=== PATIENT | female | born 1965 | race Hispanic/Latino ===

== ENCOUNTER 2018-09-04 10:33 | Inpatient (IN) | payer MEDICAID, OTHER ==
[~2018-09-04] VITALS: Ht 165.1 cm; Wt 94.3 kg
[2018-09-04 11:24] LABS: APPEARANCE,URINE TURBID (CLEAR); BILIRUBIN,URINE LARGE (NEGATIVE); COLOR,URINE BROWN (YELLOW); GLUCOSE, URINE (UA) 250 mg/dL (NEGATIVE); KETONES,URINE 15 mg/dL (NEGATIVE); LEUKOCYTE ESTERASE ,URINE MODERATE (NEGATIVE); NITRATE,URINE POSITIVE (NEGATIVE); OCCULT BLOOD,URINE TRACE-INTACT (NEGATIVE); PH,URINE 6.5 (5.0-8.0); PROTEIN,URINE >=300 (NEGATIVE); UROBILINOGEN,URINE >=8.0 mg/dL (0.2-1.0)
[2018-09-04 11:25] LABS: CREATININE 1.1 mg/dL (0.5-1.5); POTASSIUM 4.2 mmol/L (3.5-5.1)
[2018-09-04 11:30] LABS: ALBUMIN 2.8 g/dL (3.5-5.0); BILIRUBIN,TOTAL 4.4 mg/dL (0.2-1.0); TOTAL PROTEIN, SERUM 8.7 g/dL (6.0-8.3)
[2018-09-04 11:31] LABS: BASOPHILS % (AUTO) 0.7 % (0.0-5.0); EOSINOPHILS % (AUTO) 2.5 % (0.0-8.0); HEMATOCRIT 37.4 % (36-48); LYMPHOCYTES % (AUTO) 14.2 % (21.0-51.0); MEAN CORPUSCULAR HEMOGLOBIN 30.7 pg (27.0-33.0); MEAN CORPUSCULAR HGB CONC 33.5 g/dL (32.0-36.0); MEAN CORPUSCULAR VOLUME 91.6 fL (79-99); MONOCYTES % (AUTO) 8.1 % (3.0-13.0); NEUTROPHILS % (AUTO) 74.5 % (40.0-77.0); NUCLEATED RED BLOOD CELLS 0.1 % (0.0-0.19); PLATELET COUNT (AUTO) 389 K/uL (130-400); RED BLOOD CELL COUNT(AUTO) 4.09 MIL/uL (4.00-5.50); RED CELL DISTRIBUTION WIDTH 14.9 % (11.0-15.5); WHITE BLOOD COUNT (AUTO) 7.9 K/uL (4.8-10.8)
[2018-09-04 11:35] LABS: BACTERIA,URINE Many /HPF (None Seen); SQUAMOUS EPITHELIAL CELL,UR Few /HPF (0-2); YEAST,URINE BUDDING Moderate /HPF (None Seen)
[2018-09-04] MEDS ORDERED: ACETAMINOPHEN 325 MG TAB PO PRN ×2 (16:15)
[2018-09-04] MEDS ORDERED: MORPHINE SULFATE 2 MG/ML 1ML SYG IV PRN (16:15)
[2018-09-04] MEDS ORDERED: HYDRALAZINE HCL 20 MG/ML VIAL IV PRN (16:15)
[2018-09-04] MEDS ORDERED: ONDANSETRON HCL 4 MG/2 ML VIAL IV PRN (16:15)
[2018-09-04] MEDS ORDERED: SODIUM CHLORIDE 0.9% 1000ML 1,000 ML IV ONE (17:16)
[2018-09-04] MEDS ORDERED: ZOSYN 3.375GM+NS 50ML 50 ML IV ONE (17:16)
[2018-09-04] MEDS ORDERED: ENOXAPARIN SODIUM 30 MG/0.3 ML SQ ONE (17:16)
[2018-09-04] MEDS ORDERED: SODIUM CHLORIDE 0.9% 50 ML IV ONE (17:17)
[2018-09-04 17:45] LABS: HEMOGLOBIN A1C 9.4 % (4.0-6.0)
[2018-09-04 17:52] LABS: ALBUMIN 2.3 g/dL (3.5-5.0); BILIRUBIN,DIRECT 4.8 mg/dL (0.0-0.3); BILIRUBIN,TOTAL 5.2 mg/dL (0.2-1.0); TOTAL PROTEIN, SERUM 6.9 g/dL (6.0-8.3)
[2018-09-04 18:51] VITALS: BP 149/73
[2018-09-04 20:00] VITALS: BP 125/90
--- NOTE | 2018-09-04 20:00 | NUR ---
ADMISSION. PT ADMITTED INTO ROOM 413. PT IN BED, WITH FAMILY MEMBER AT BEDSIDE. AWAKE, ALERT AND RESPONSIVE. NO C/O PAIN OR DISCOMFORT AT THIS TIME. PT AND FAMILY MEMBER ORIENTED TO ROOM. CALL SMITH WITHIN REACH, BED IN LOWEST POSITION. Addendum: 09/04/18 at 2140 by HEATHER MILAN RN Amended: Links added.
[2018-09-04] MEDS: ZOSYN 3.375GM+NS 50ML 50 ML IV SCH (21:00)
[2018-09-04] MEDS: SODIUM CHLORIDE 0.9% 1000ML 1,000 ML IV SCH (21:26)
[2018-09-04] MEDS: INSULIN HUMULIN R 100 UNIT/ML 3ML SQ SCH (21:26)
[2018-09-04] MEDS: FAMOTIDINE/PF 20 MG/2 ML VIAL IV SCH (21:26)
[2018-09-04] MEDS: CEFTRIAXONE SODIUM 2 GM VIAL IVP SCH (22:30)
[2018-09-04] MEDS ORDERED: CEFAZOLIN SODIUM 1 GM VIAL ONE (23:06)
[2018-09-04] MEDS: AZITHROMYCIN 500MG+NS 250ML 250 ML IV SCH (23:40)
[2018-09-04 23:56] VITALS: BP 137/76
[2018-09-05] MEDS ORDERED: SODIUM CHLORIDE 3% FOR INHALATION 4 ML/AMP VIAL.NEB IH ONE ×2 (00:32→07:24)
[2018-09-05] MEDS: SODIUM CHLORIDE 0.9% 1000ML 1,000 ML IV SCH ×3 (02:09→20:52)
[2018-09-05] MEDS: ZOSYN 3.375GM+NS 50ML 50 ML IV SCH ×3 (03:28→20:51)
[2018-09-05 04:00] VITALS: BP 122/78
[2018-09-05 04:42] LABS: HEMATOCRIT 31.5 % (36-48); MEAN CORPUSCULAR HEMOGLOBIN 30.9 pg (27.0-33.0); MEAN CORPUSCULAR HGB CONC 34.2 g/dL (32.0-36.0); MEAN CORPUSCULAR VOLUME 90.4 fL (79-99); PLATELET COUNT (AUTO) 282 K/uL (130-400); RED BLOOD CELL COUNT(AUTO) 3.49 MIL/uL (4.00-5.50); RED CELL DISTRIBUTION WIDTH 14.6 % (11.0-15.5); WHITE BLOOD COUNT (AUTO) 6.6 K/uL (4.8-10.8)
[2018-09-05 05:06] LABS: ALBUMIN 2.1 g/dL (3.5-5.0); BILIRUBIN,TOTAL 5.3 mg/dL (0.2-1.0); CREATININE 1.3 mg/dL (0.5-1.5); MAGNESIUM 1.3 mg/dL (1.80-2.40); PHOSPHORUS 3.1 mg/dL (2.5-4.9); POTASSIUM 4.4 mmol/L (3.5-5.1); THYROID STIMULATING HORMONE 1.31 uIU/mL (0.36-3.74); TOTAL PROTEIN, SERUM 6.8 g/dL (6.0-8.3)
[2018-09-05] MEDS: INSULIN HUMULIN R 100 UNIT/ML 3ML SQ SCH ×5 (06:16→20:52)
[2018-09-05 07:40] VITALS: BP 109/64
--- NOTE | 2018-09-05 08:30 | NUR ---
OBGYN CONSULT CALLED DR. SHAYY ALBRIGHT, INFORMED HIM OF THE CONSULT. DR. ALBRIGHT STATED THAT HE WAS NOT WIRING INSPECTOR TODAY BUT HE AGREED TO SEE THE PATIENT.
[2018-09-05] MEDS: ENOXAPARIN SODIUM 30 MG/0.3 ML SQ SCH (09:00)
--- NOTE | 2018-09-05 09:00 | NUR ---
GI CONSULT DR. BRANNON CALLED BACK. REQUESTED TO CALL HIS OFFICE WITH RESULT OF CT AND INITIATE A CLEAR LIQUID DIET FOR PT. NEW ORDERS RECEIVED AND CARRIED OUT.
[2018-09-05] MEDS ORDERED: DIATR MEGLU/DIATRIZOATE SODIUM 30 ML BOTTLE ONE (09:10)
[2018-09-05] MEDS ORDERED: IOHEXOL-350 75 ML VIAL IV ONE (10:17)
[2018-09-05] MEDS: FAMOTIDINE/PF 20 MG/2 ML VIAL IV SCH ×2 (10:19→20:51)
[2018-09-05] MEDS: CEFTRIAXONE SODIUM 2 GM VIAL IVP SCH (10:19)
[2018-09-05] MEDS: CEFTRIAXONE SODIUM 1 GM IVP SCH ×2 (11:00→23:13)
[2018-09-05 11:50] VITALS: BP 106/67
--- NOTE | 2018-09-05 13:00 | NUR ---
DR. BRANNON CALLED DR. BRANNON'S OFFICE TO READ BACK RESULTS OF CT. PER OFFICE STAFF, DR. BRANNON WAS IN A PT ROOM AND REQUESTED TO FAX CT RESULTS. CT ABD/PELVIS FAXED WITH [facility] [place] FAX COVER. WAITING FOR DR. BRANNON TO CALL BACK. WILL CONTINUE TO MONITOR CLOSELY.
[2018-09-05 16:20] VITALS: BP 111/68
--- NOTE | 2018-09-05 16:43 | NUR ---
NUTRITION INTERVENTION: NUTRITION NOTIFICATION FOR WT LOSS WITHOUT TRYING. HOWEVER, Pt REPORTS NO WEIGHT LOSS TO DIETITIAN. Pt STATES SHE DOES NOT KNOW HOW TO READ ALTHOUGH NO HANDOUTS WERE BEING PROVIDED TO HER. RD REVIEWED DIABETIC DIET WITH IN DISCUSSION FORM. Pt HAS BEEN ADVISED TO REMOVE RICE, POTATO AND TORTILLAS FROM HER DIET. Pt LAUGHS AND VERBALIZE UNDERSTANDING. RD HAS EMPHASIZED THE IMPORTANCE OF HEALTHY EATING. RECOMMENDATIONS: WHEN MEDICALLY FEASIBLE, ADVANCE DIET THERAPY TO CCD 75GM DIET. RD TO CONTINUE MONITORING Pt's NUTRITIONAL STATUS FOR CONTINUED INTERVENTION. Addendum: 09/05/18 at [address] RD Amended: Links added.
[2018-09-05] MEDS ORDERED: MAGNESIUM 2GM PREMIX 50ML 50 ML IV PRN (19:00)
--- NOTE | 2018-09-05 20:04 | NUR ---
DCP CM met wit pt discussed dc plans. Pt is independent prior to admission, lives at home with daughter, family live close by. Denies any equipments/services. Pt feels safe to go back home, daughter able to assist with transportation and needs as necessary. Pt is a self pay, states currently does not have a pcp, given community resources lists. [facility] assisting pt. DC plan to home once stable. CM to cont to follow up. Addendum: 09/05/18 at 2006 by HEYDI DEGROOT LVN CM Amended: Links added.
[2018-09-05 20:10] VITALS: BP 118/73
[2018-09-05] MEDS: AZITHROMYCIN 500MG+NS 250ML 250 ML IV SCH (23:13)
[2018-09-05 23:46] VITALS: BP 118/73
[2018-09-06 04:24] LABS: HEMATOCRIT 32.7 % (36-48); MEAN CORPUSCULAR HEMOGLOBIN 30.5 pg (27.0-33.0); MEAN CORPUSCULAR HGB CONC 33.4 g/dL (32.0-36.0); MEAN CORPUSCULAR VOLUME 91.3 fL (79-99); NUCLEATED RED BLOOD CELLS 0.1 % (0.0-0.19); PLATELET COUNT (AUTO) 252 K/uL (130-400); RED BLOOD CELL COUNT(AUTO) 3.58 MIL/uL (4.00-5.50); RED CELL DISTRIBUTION WIDTH 14.9 % (11.0-15.5); WHITE BLOOD COUNT (AUTO) 6.1 K/uL (4.8-10.8)
[2018-09-06 04:46] VITALS: BP 116/76
[2018-09-06] MEDS: ZOSYN 3.375GM+NS 50ML 50 ML IV SCH (05:07)
[2018-09-06 05:17] LABS: ALBUMIN 1.9 g/dL (3.5-5.0); BILIRUBIN,DIRECT 5.1 mg/dL (0.0-0.3); BILIRUBIN,TOTAL 5.7 mg/dL (0.2-1.0); CREATININE 1.3 mg/dL (0.5-1.5); POTASSIUM 3.7 mmol/L (3.5-5.1); TOTAL PROTEIN, SERUM 6.3 g/dL (6.0-8.3)
[2018-09-06] MEDS: INSULIN HUMULIN R 100 UNIT/ML 3ML SQ SCH ×4 (06:01→20:56)
[2018-09-06 08:00] VITALS: BP 110/70
[2018-09-06 08:26] LABS: HEPATITIS A ANTIBODY IGM Negative (Negative); HEPATITIS B CORE IGM Negative (Negative); HEPATITIS Bs ANTIGEN SCREEN P Negative (Negative)
[2018-09-06] MEDS: ENOXAPARIN SODIUM 30 MG/0.3 ML SQ SCH (08:45)
[2018-09-06] MEDS: FAMOTIDINE/PF 20 MG/2 ML VIAL IV SCH ×2 (08:45→20:49)
[2018-09-06] MEDS: SODIUM CHLORIDE 0.9% 1000ML 1,000 ML IV SCH ×2 (08:46→22:29)
[2018-09-06 11:00] VITALS: BP 110/69
[2018-09-06] MEDS: CEFTRIAXONE SODIUM 1 GM IVP SCH ×2 (13:34→22:29)
[2018-09-06 16:00] VITALS: BP 119/71
[2018-09-06 18:07] LABS: ALBUMIN 2.2 g/dL (3.5-5.0); BILIRUBIN,TOTAL 6.4 mg/dL (0.2-1.0); CREATININE 1.5 mg/dL (0.5-1.5); POTASSIUM 3.8 mmol/L (3.5-5.1); TOTAL PROTEIN, SERUM 7.5 g/dL (6.0-8.3)
[2018-09-06 19:30] VITALS: BP 115/73
--- NOTE | 2018-09-06 22:05 | NUR ---
CONSENT PLAN FOR DIAGNOSTIC PARACENTESIS, [id number] OBTAIN FROM DAUGHTER, PATIENT VERBALIZES UNDERSTANDING,IVF INFUSING WELL, TEACH PATIENT PLAN OF CARE AND EXPECTED OUTCOME, VERBALIZE UNDERSTANDING VIA TEACH BACK
[2018-09-06 23:20] VITALS: BP 126/84
[2018-09-07] VITALS (27 sets, daily range): BP systolic 10–172; BP diastolic 46–102
[2018-09-07 04:50] LABS: HEMATOCRIT 32.9 % (36-48); MEAN CORPUSCULAR HEMOGLOBIN 30.7 pg (27.0-33.0); MEAN CORPUSCULAR HGB CONC 33.6 g/dL (32.0-36.0); MEAN CORPUSCULAR VOLUME 91.5 fL (79-99); NUCLEATED RED BLOOD CELLS 0.1 % (0.0-0.19); PLATELET COUNT (AUTO) 296 K/uL (130-400); RED BLOOD CELL COUNT(AUTO) 3.59 MIL/uL (4.00-5.50); WHITE BLOOD COUNT (AUTO) 6.5 K/uL (4.8-10.8)
[2018-09-07 05:06] LABS: ALBUMIN 1.9 g/dL (3.5-5.0); BILIRUBIN,DIRECT 5.8 mg/dL (0.0-0.3); BILIRUBIN,TOTAL 6.4 mg/dL (0.2-1.0); CREATININE 1.3 mg/dL (0.5-1.5); POTASSIUM 3.4 mmol/L (3.5-5.1); TOTAL PROTEIN, SERUM 6.6 g/dL (6.0-8.3)
[2018-09-07] MEDS ORDERED: POTASSIUM CHLORIDE 20MEQ/100ML 100 ML IV PRN (05:45)
[2018-09-07] MEDS ORDERED: POTASSIUM CHLORIDE 10% ELIXIR 20 MEQ/15 ML UDCUP PO PRN (05:45)
[2018-09-07] MEDS ORDERED: LIDOCAINE HCL-MPF 1% 2ML VIAL IVP PRN (05:45)
[2018-09-07] MEDS ORDERED: POTASSIUM CHLORIDE 10% ELIXIR 20 MEQ/15 ML UDCUP ONE (05:47)
[2018-09-07] MEDS: INSULIN HUMULIN R 100 UNIT/ML 3ML SQ SCH ×5 (05:56→20:10)
[2018-09-07] MEDS: FAMOTIDINE/PF 20 MG/2 ML VIAL IV SCH ×2 (08:31→20:10)
[2018-09-07] MEDS: ENOXAPARIN SODIUM 30 MG/0.3 ML SQ SCH (08:31)
[2018-09-07 10:44] LABS: INR 1.09 (0.85-1.15); PARTIAL THROMBOPLASTIN TIME 27.5 SEC (26.3-35.5); PROTHROMBIN TIME 11.4 SEC (9.6-11.6)
[2018-09-07] MEDS: CEFTRIAXONE SODIUM 1 GM IVP SCH ×2 (11:30→22:32)
[2018-09-07] MEDS ORDERED: LIDOCAINE HCL 1% 20 ML VIAL ONE (14:20)
--- NOTE | 2018-09-07 14:40 | NUR ---
U/S GD PARACENTESIS PROCEDURE PERFORMED BY DR Valarie LEDESMA. PUNCTURE SITE LLQ AND PATIENT TOLERATED PROCEDURE WELL. SMALL AMOUNT OF FLUID PRESENT AND UNABLE TO REMOVE FLUID FOR ANALYSIS. END OF PROCEDURE AT 1425. CATHETER REMOVED AND DRESSING APPLIED. NO BLEEDING NOTED. REPORT GIVEN TO Ed DUQUE RN AND PATIENT TRANSPORTED TO [facility] VIA W/C AT 1440. AAO X3 WITH NO C/O PAIN.
[2018-09-07 16:14] LABS: ALPHA-1-ANTITRYPSIN 205 mg/dL (90-200)
[2018-09-07] MEDS ORDERED: IOHEXOL-350 50ML VIAL IV ONE (16:44)
[2018-09-07] MEDS ORDERED: PROPOFOL 1000 MG/100 ML 100 ML IV ONE ×2 (17:30→18:20)
[2018-09-07] MEDS ORDERED: SUCCINYLCHOLINE CHLORIDE 20 MG/ML 10 ML VIAL ONE (17:42)
[2018-09-07] MEDS ORDERED: PHENYLEPHRINE HCL 10 MG/ML 1ML VIAL IV ONE (17:42)
[2018-09-07] MEDS ORDERED: FENTANYL CITRATE PF 50 MCG/1 ML 2ML VIAL ONE (17:42)
[2018-09-07] MEDS ORDERED: INDOMETHACIN 50 MG SUPP.RECT RC SCH (18:15)
--- NOTE | 2018-09-07 19:55 | NUR ---
POST OP RECEIVED PATIENT POST OP, AWAKE, ALERT, OX3, NO SOB, NO C/O PAIN, DRESSING LEFT ABDOMEN D/I, IVF INFUSING WELL TO RIGHT AC 20 GAUGE , CALL SMITH AT REACH, INSTRUCT PATIENT TO CALL NURSE FOR ASSISTANCE, PATIENT VERBALIZES UNDERSTANDING VIA TEACH BACK
[2018-09-07] MEDS: SODIUM CHLORIDE 0.9% 1000ML 1,000 ML IV SCH (19:58)
[2018-09-08 03:20] VITALS: BP 123/86
[2018-09-08 04:25] LABS: BASOPHILS % (AUTO) 0.8 % (0.0-5.0); EOSINOPHILS % (AUTO) 2.3 % (0.0-8.0); HEMATOCRIT 32.4 % (36-48); LYMPHOCYTES % (AUTO) 12.5 % (21.0-51.0); MEAN CORPUSCULAR HEMOGLOBIN 30.6 pg (27.0-33.0); MEAN CORPUSCULAR HGB CONC 33.3 g/dL (32.0-36.0); MEAN CORPUSCULAR VOLUME 91.9 fL (79-99); MONOCYTES % (AUTO) 8.1 % (3.0-13.0); NEUTROPHILS % (AUTO) 76.3 % (40.0-77.0); PLATELET COUNT (AUTO) 262 K/uL (130-400); RED BLOOD CELL COUNT(AUTO) 3.53 MIL/uL (4.00-5.50); RED CELL DISTRIBUTION WIDTH 14.6 % (11.0-15.5); WHITE BLOOD COUNT (AUTO) 6.4 K/uL (4.8-10.8)
[2018-09-08 04:38] LABS: CREATININE 1.1 mg/dL (0.5-1.5); POTASSIUM 3.8 mmol/L (3.5-5.1)
[2018-09-08] MEDS: INSULIN HUMULIN R 100 UNIT/ML 3ML SQ SCH ×4 (06:15→20:07)
[2018-09-08 08:12] VITALS: BP 132/81
[2018-09-08] MEDS: CEFTRIAXONE SODIUM 1 GM IVP SCH ×2 (11:25→22:06)
[2018-09-08] MEDS: FAMOTIDINE/PF 20 MG/2 ML VIAL IV SCH ×2 (11:27→20:07)
[2018-09-08] MEDS: ENOXAPARIN SODIUM 30 MG/0.3 ML SQ SCH (11:35)
--- NOTE | 2018-09-08 12:08 | NUR ---
Nutrition follow-up: Pt. S/P US Guided paracentesis(09/07/18). Pt. on Clear Liquid diet with good p.o. intake, per pt. Pt. on CL / NPO x 3 days. Labs reviewed(Alb 1.9). LBM: 09/05/18. SR-20, SAGE Abd. puncture. Recommendations: 1) Rec. advance diet as tolerated to 75gm CCD. 2) Rec. 30ml ProMod TID with meals. 3) Continue to monitor pt's nutritional status and diet advancement. 4) Consult RD as nutrition concerns arise. Addendum: 09/08/18 at [address] Amended: Links added.
[2018-09-08 12:42] VITALS: BP 122/72
[2018-09-08] MEDS: SODIUM CHLORIDE 0.9% 1000ML 1,000 ML IV SCH (15:37)
[2018-09-08 16:00] VITALS: BP 111/71
[2018-09-08 19:17] VITALS: BP 127/79
[2018-09-08 23:28] VITALS: BP 129/61
[2018-09-09 03:52] VITALS: BP 128/77
[2018-09-09 05:01] LABS: EOSINOPHILS % (AUTO) 2.6 % (0.0-8.0); HEMATOCRIT 31.3 % (36-48); LYMPHOCYTES % (AUTO) 18.2 % (21.0-51.0); MEAN CORPUSCULAR HEMOGLOBIN 30.4 pg (27.0-33.0); MEAN CORPUSCULAR HGB CONC 32.8 g/dL (32.0-36.0); MEAN CORPUSCULAR VOLUME 92.5 fL (79-99); MONOCYTES % (AUTO) 7.6 % (3.0-13.0); NEUTROPHILS % (AUTO) 70.6 % (40.0-77.0); PLATELET COUNT (AUTO) 272 K/uL (130-400); RED BLOOD CELL COUNT(AUTO) 3.38 MIL/uL (4.00-5.50); RED CELL DISTRIBUTION WIDTH 15.2 % (11.0-15.5); WHITE BLOOD COUNT (AUTO) 5.3 K/uL (4.8-10.8)
[2018-09-09] MEDS: INSULIN HUMULIN R 100 UNIT/ML 3ML SQ SCH ×4 (06:06→20:40)
[2018-09-09 08:00] VITALS: BP 135/75
[2018-09-09] MEDS: FAMOTIDINE/PF 20 MG/2 ML VIAL IV SCH ×2 (08:19→20:46)
[2018-09-09] MEDS: ENOXAPARIN SODIUM 30 MG/0.3 ML SQ SCH (08:23)
--- NOTE | 2018-09-09 10:45 | NUR ---
DR. TESSA CULLEN HERE TO SEE PATIENT. STATES THAT PATIENT NEEDS TO BE SEEN BY A LOCAL TANKER TRUCK DRIVER-ONCOLOGIST DOCTOR AN OUTPATIENT. PATIENT STATES SHE DOES NOT HAVE INSURANCE.
--- NOTE | 2018-09-09 11:20 | NUR ---
DR. ALBRIGHT SPOKE TO DR. ALBRIGHT VIA TELEPHONE AND INFORMED MD OF CA-125 RESULTS SINCE MD ORDERED THE TEST. MD REPLIED HE WOULD NEED CLEARANCE FROM ONCOLOGY BEFORE PROCEEDING WITH ANY GYNECOLOGICAL PROCEDURES SINCE PATIENT HAS POSSIBLE METASTASIS.
--- NOTE | 2018-09-09 11:33 | NUR ---
DR. CLOVIS BRUCE MD TO ANSWERING SERVICE, AWAITING CALLBACK.
[2018-09-09 11:45] VITALS: BP 113/76
[2018-09-09] MEDS: SODIUM CHLORIDE 0.9% 1000ML 1,000 ML IV SCH (12:02)
[2018-09-09] MEDS: FLUCONAZOLE 200 MG/NS 100 ML 100 ML IV SCH (12:11)
[2018-09-09] MEDS: CEFTRIAXONE SODIUM 1 GM IVP SCH ×2 (12:11→22:04)
[2018-09-09 16:42] VITALS: BP 122/75
[2018-09-09 19:24] VITALS: BP 146/77
[2018-09-09 23:37] VITALS: BP 135/79
[2018-09-10 03:42] VITALS: BP 126/73
[2018-09-10 04:46] LABS: BASOPHILS % (AUTO) 0.9 % (0.0-5.0); EOSINOPHILS % (AUTO) 3.8 % (0.0-8.0); HEMATOCRIT 31.1 % (36-48); LYMPHOCYTES % (AUTO) 15.2 % (21.0-51.0); MEAN CORPUSCULAR HEMOGLOBIN 30.7 pg (27.0-33.0); MEAN CORPUSCULAR HGB CONC 33.5 g/dL (32.0-36.0); MEAN CORPUSCULAR VOLUME 91.7 fL (79-99); MONOCYTES % (AUTO) 7.7 % (3.0-13.0); NEUTROPHILS % (AUTO) 72.4 % (40.0-77.0); PLATELET COUNT (AUTO) 249 K/uL (130-400); RED BLOOD CELL COUNT(AUTO) 3.39 MIL/uL (4.00-5.50); WHITE BLOOD COUNT (AUTO) 6.3 K/uL (4.8-10.8)
[2018-09-10 05:04] LABS: CREATININE 0.9 mg/dL (0.5-1.5); POTASSIUM 3.8 mmol/L (3.5-5.1)
[2018-09-10] MEDS: INSULIN HUMULIN R 100 UNIT/ML 3ML SQ SCH ×4 (05:46→21:01)
[2018-09-10] MEDS: SODIUM CHLORIDE 0.9% 1000ML 1,000 ML IV SCH (07:09)
[2018-09-10 08:09] VITALS: BP 128/75
[2018-09-10] MEDS: FAMOTIDINE/PF 20 MG/2 ML VIAL IV SCH ×2 (08:41→20:56)
[2018-09-10] MEDS: FLUCONAZOLE 200 MG/NS 100 ML 100 ML IV SCH (08:41)
[2018-09-10] MEDS: ENOXAPARIN SODIUM 30 MG/0.3 ML SQ SCH (08:42)
[2018-09-10 12:00] VITALS: BP 112/73
[2018-09-10] MEDS: CEFTRIAXONE SODIUM 1 GM IVP SCH ×2 (14:08→23:03)
[2018-09-10 16:00] VITALS: BP 134/74
[2018-09-10 19:19] VITALS: BP 117/67
--- NOTE | 2018-09-10 21:00 | NUR ---
MEDS PT RESTING WELL, NO DISTRESS NOTED. NO COMPLAINTS VERBALIZED. DUE MEDS ADMINISTERED, TOLERATED WELL. KEPT COMFORTABLE IN BED. CALL LIGHT WITHIN REACH.
[2018-09-10 23:19] VITALS: BP 121/67
[2018-09-11 00:08] VITALS: BP 117/73
--- NOTE | 2018-09-11 02:00 | NUR ---
ROUNDS PT RESTING WELL, FAIRLY ASLEEP. NO DISTRESS NOTED. KEPT UNDISTURBED FOR NOW. WILL MONITOR PT.
[2018-09-11] MEDS: SODIUM CHLORIDE 0.9% 1000ML 1,000 ML IV SCH ×2 (03:01→06:00)
[2018-09-11 03:35] VITALS: BP 118/65
[2018-09-11 05:24] LABS: EOSINOPHILS % (AUTO) 3.2 % (0.0-8.0); HEMATOCRIT 30.1 % (36-48); LYMPHOCYTES % (AUTO) 16.4 % (21.0-51.0); MEAN CORPUSCULAR HEMOGLOBIN 30.9 pg (27.0-33.0); MEAN CORPUSCULAR HGB CONC 33.6 g/dL (32.0-36.0); MONOCYTES % (AUTO) 5.6 % (3.0-13.0); NEUTROPHILS % (AUTO) 73.8 % (40.0-77.0); NUCLEATED RED BLOOD CELLS 0.1 % (0.0-0.19); PLATELET COUNT (AUTO) 260 K/uL (130-400); RED BLOOD CELL COUNT(AUTO) 3.27 MIL/uL (4.00-5.50); RED CELL DISTRIBUTION WIDTH 15.1 % (11.0-15.5)
[2018-09-11 05:36] LABS: CREATININE 0.9 mg/dL (0.5-1.5); POTASSIUM 3.8 mmol/L (3.5-5.1)
[2018-09-11] MEDS: INSULIN HUMULIN R 100 UNIT/ML 3ML SQ SCH ×4 (06:00→23:07)
--- NOTE | 2018-09-11 06:00 | NUR ---
ROUNDS PT RESTING WELL. NO CONCERNS VERBALIZED. NO DISTRESS NOTED. KEPT COMFORTABLE. NEW IV BAG HUNG. FOR MORE CARE.
[2018-09-11 08:00] VITALS: BP 122/77
[2018-09-11] MEDS: FAMOTIDINE/PF 20 MG/2 ML VIAL IV SCH ×2 (09:00→23:05)
[2018-09-11 11:00] VITALS: BP 120/68
[2018-09-11] MEDS: FLUCONAZOLE 200 MG/NS 100 ML 100 ML IV SCH (12:09)
[2018-09-11] MEDS: ENOXAPARIN SODIUM 30 MG/0.3 ML SQ SCH (12:10)
[2018-09-11] MEDS: CEFTRIAXONE SODIUM 1 GM IVP SCH ×2 (12:11→23:06)
--- NOTE | 2018-09-11 13:29 | NUR ---
RD Follow-up Note Patient tolerating 75gm CCD, Mechanical soft diet with no report of GI distress and PO intake at 75-100%. Patient LBM 09/10/18. RN reports patient need for diet education with reading barrier; RD to provide pending diet education. Patient monitored labs: Glu 153, Ca 7.8. RD to continue to monitor. Please notify RD as nutritional concerns arise. Thank you. Addendum: 09/11/18 at [address] Amended: Links added.
[2018-09-11 16:00] VITALS: BP 116/77
[2018-09-12 00:13] VITALS: BP 117/73
[2018-09-12] MEDS: SODIUM CHLORIDE 0.9% 1000ML 1,000 ML IV SCH ×2 (00:26→22:02)
[2018-09-12 04:22] VITALS: BP 118/75
[2018-09-12 05:10] LABS: BASOPHILS % (AUTO) 0.8 % (0.0-5.0); EOSINOPHILS % (AUTO) 3.5 % (0.0-8.0); HEMATOCRIT 29.9 % (36-48); LYMPHOCYTES % (AUTO) 15.3 % (21.0-51.0); MEAN CORPUSCULAR HEMOGLOBIN 31.1 pg (27.0-33.0); MEAN CORPUSCULAR HGB CONC 33.9 g/dL (32.0-36.0); MEAN CORPUSCULAR VOLUME 91.6 fL (79-99); MONOCYTES % (AUTO) 7.4 % (3.0-13.0); NUCLEATED RED BLOOD CELLS 0.1 % (0.0-0.19); PLATELET COUNT (AUTO) 224 K/uL (130-400); RED BLOOD CELL COUNT(AUTO) 3.26 MIL/uL (4.00-5.50); WHITE BLOOD COUNT (AUTO) 6.8 K/uL (4.8-10.8)
[2018-09-12 05:21] LABS: CREATININE 0.8 mg/dL (0.5-1.5); POTASSIUM 3.2 mmol/L (3.5-5.1)
[2018-09-12] MEDS: INSULIN HUMULIN R 100 UNIT/ML 3ML SQ SCH ×4 (05:53→22:00)
[2018-09-12] MEDS: POTASSIUM CHLORIDE 20 MEQ ERTAB PO PRN ×3 (06:07→15:48)
[2018-09-12 08:00] VITALS: BP 124/76
[2018-09-12] MEDS: FAMOTIDINE/PF 20 MG/2 ML VIAL IV SCH ×2 (08:46→22:02)
[2018-09-12] MEDS: ENOXAPARIN SODIUM 30 MG/0.3 ML SQ SCH (08:47)
[2018-09-12] MEDS: FLUCONAZOLE 200 MG/NS 100 ML 100 ML IV SCH (08:49)
[2018-09-12] MEDS: CEFTRIAXONE SODIUM 1 GM IVP SCH ×2 (10:47→22:02)
[2018-09-12 11:00] VITALS: BP 107/71
[2018-09-12] MEDS ORDERED: FUROSEMIDE 10 MG/ML 4ML VIAL IV SCH (15:45)
[2018-09-12 16:00] VITALS: BP 122/65
[2018-09-12 19:05] VITALS: BP_SYST 110
[2018-09-13] VITALS (7 sets, daily range): BP systolic 111–127; BP diastolic 62–82
[2018-09-13] MEDS: INSULIN HUMULIN R 100 UNIT/ML 3ML SQ SCH ×4 (06:28→20:48)
[2018-09-13] MEDS: FAMOTIDINE/PF 20 MG/2 ML VIAL IV SCH ×2 (09:32→20:44)
[2018-09-13] MEDS: FLUCONAZOLE 200 MG/NS 100 ML 100 ML IV SCH (09:32)
[2018-09-13] MEDS: ENOXAPARIN SODIUM 30 MG/0.3 ML SQ SCH (09:32)
[2018-09-13] MEDS: CEFTRIAXONE SODIUM 1 GM IVP SCH ×2 (11:01→23:09)
[2018-09-13 13:44] LABS: BILIRUBIN,TOTAL 10.6 mg/dL (0.2-1.0)
[2018-09-13 13:52] LABS: BILIRUBIN,DIRECT 9.4 mg/dL (0.0-0.3)
--- NOTE | 2018-09-13 14:28 | NUR ---
Spoke with JOSE Faulkner, report Bili results to Dr. Horton. Dr. Horton office called s/w brett. NO new orders. results to be faxed to Dr. Horton office
--- NOTE | 2018-09-13 14:35 | NUR ---
Dr. Castano notified of Bili results total bili 10.6 and direct bili 9.4 s/w Josette/dr. Wynn. No new orders.
--- NOTE | 2018-09-13 14:45 | NUR ---
Jorge Albertoi results faxed to Dr. Horton as per Angelica.
--- NOTE | 2018-09-13 16:10 | NUR ---
Diet education: CECIL provided pt with printed materials on Diabetic diet. Pt verbalize unable to read. Printed materials with pictures for demonstrations. Printed materials reviewed with CECIL. Pt's daughter and pt with nutritional questions, all nutrition questions and concerns answered by CECIL. Addendum: 09/13/18 at [address] Amended: Links added.
[2018-09-13] MEDS: SODIUM CHLORIDE 0.9% 1000ML 1,000 ML IV SCH (16:38)
[2018-09-14 03:12] VITALS: BP 112/64
[2018-09-14 04:19] LABS: BASOPHILS % (AUTO) 1.1 % (0.0-5.0); EOSINOPHILS % (AUTO) 3.2 % (0.0-8.0); HEMATOCRIT 27.1 % (36-48); LYMPHOCYTES % (AUTO) 18.6 % (21.0-51.0); MEAN CORPUSCULAR HEMOGLOBIN 31.3 pg (27.0-33.0); MEAN CORPUSCULAR HGB CONC 33.9 g/dL (32.0-36.0); MEAN CORPUSCULAR VOLUME 92.3 fL (79-99); MONOCYTES % (AUTO) 6.8 % (3.0-13.0); NEUTROPHILS % (AUTO) 70.3 % (40.0-77.0); PLATELET COUNT (AUTO) 225 K/uL (130-400); RED BLOOD CELL COUNT(AUTO) 2.94 MIL/uL (4.00-5.50); RED CELL DISTRIBUTION WIDTH 15.4 % (11.0-15.5); WHITE BLOOD COUNT (AUTO) 6.6 K/uL (4.8-10.8)
[2018-09-14 04:39] LABS: ALBUMIN 1.6 g/dL (3.5-5.0); BILIRUBIN,TOTAL 8.9 mg/dL (0.2-1.0); CREATININE 0.8 mg/dL (0.5-1.5); POTASSIUM 3.7 mmol/L (3.5-5.1); TOTAL PROTEIN, SERUM 5.8 g/dL (6.0-8.3)
[2018-09-14] MEDS: INSULIN HUMULIN R 100 UNIT/ML 3ML SQ SCH ×4 (05:45→17:48)
[2018-09-14 08:47] VITALS: BP 126/76
[2018-09-14] MEDS: CEFTRIAXONE SODIUM 1 GM IVP SCH (10:22)
[2018-09-14] MEDS: FAMOTIDINE/PF 20 MG/2 ML VIAL IV SCH (10:22)
[2018-09-14] MEDS: ENOXAPARIN SODIUM 30 MG/0.3 ML SQ SCH (10:27)
[2018-09-14] MEDS: FLUCONAZOLE 200 MG/NS 100 ML 100 ML IV SCH (10:29)
[2018-09-14] MEDS: SODIUM CHLORIDE 0.9% 1000ML 1,000 ML IV SCH (11:09)
[2018-09-14 12:28] VITALS: BP 120/67
--- NOTE | 2018-09-14 16:00 | NUR ---
PER DR. BRANNON D/C PATIENT HOME, NO INTERVENTION FOR ELEVATED BILIRUBIN. F/U 1-2 WEEKS.
[2018-09-14 16:56] VITALS: BP 116/61
--- NOTE | 2018-09-14 18:00 | NUR ---
DISCHARGED HOME USING TEACH BACK TECHNIQUE RE; NO NEW MEDS, HOME MEDS, S/S TO WATCH FOR AND WHEN TO CALL 911 IF SHORTNESS OF BREATH OR CHEST PAIN PERSIST EVEN WITH REST. IV OUT INTACT, NO TELE, AWARE OF APPOINTMENTS. DAUGHTER AT BEDSIDE.
== END 2018-09-14 18:49 | disposition home or self-care (01) | DRG 391 ==
LOC: EDH 10:33 → EDHIP 10:35 → UNDOADMIN 16:09 → 4CH 18:03
PROVIDERS: ADMIT Internal Medicine; ATTEND Internal Medicine
PROC: 0DB98ZX Excision of Duodenum, Via Natural or Artificial Opening Endoscopic, Diagnostic (ICD-10-PCS; principal; 2018-09-07)
PROC: 0W9G3ZZ Drainage of Peritoneal Cavity, Percutaneous Approach (ICD-10-PCS; 2018-09-07)
DX: R19.09 Other intra-abdominal and pelvic swelling, mass and lump (principal); K83.1 Obstruction of bile duct; C79.11 Secondary malignant neoplasm of bladder; N39.0 Urinary tract infection, site not specified; E44.0 Moderate protein-calorie malnutrition; E87.1 Hypo-osmolality and hyponatremia; R17 Unspecified jaundice; C56.9 Malignant neoplasm of unspecified ovary; R78.81 Bacteremia; E11.65 Type 2 diabetes mellitus with hyperglycemia; M19.90 Unspecified osteoarthritis, unspecified site; D64.9 Anemia, unspecified; E83.42 Hypomagnesemia; I10 Essential (primary) hypertension; R74.8 Abnormal levels of other serum enzymes; Z68.34 Body mass index [BMI] 34.0-34.9, adult; Z90.49 Acquired absence of other specified parts of digestive tract
CPT/HCPCS: 36415; 43239; 49083; 71045; 74176; 74178; 76700; 80048; 80053; 80074; 80076; 81001; 82103; 82104; 82105; 82140; 82247; 82248; 82378; 82948; 83036; 83516; 83735; 84100; 84443; 85025; 85027; 85610; 85730; 86255; 86304; 86316; 87040; 87071; 87088; 87205; 87804; 88305; 94640; A4218; G0378; J0330; J0456; J0690; J0696; J1450; J1650; J1815; J1940; J2370; J2543; J2704; J3010; J3475; J3490; J7030; Q9963; Q9967

== ENCOUNTER 2018-11-02 15:48 | Inpatient (IN) | payer OTHER ==
[2018-11-02] VITALS (7 sets, daily range): BP systolic 58–78; BP diastolic 36–47
[~2018-11-02] VITALS: Ht 167.6 cm; Wt 95.7 kg
[~2018-11-02 15:48] MED LIST: ATROPINE SULFATE 0.1 MG/ML 10 ML SYG IVP ONE; CALCIUM CHLORIDE 100 MG/ML 10 ML SYG IVP ONE; DEXTROSE 50%-WATER 50 ML DISP.SYRIN IV ONE; EPINEPHRINE 0.1 MG/ML 10 ML SYG IVP ONE; ETOMIDATE 2 MG/ML 10 ML VIAL IVP ONE; ROCURONIUM BROMIDE 10MG/1ML 5ML VL IV ONE; SODIUM BICARB 8.4% 50ML SYRINGE IVP ONE
[2018-11-02] MEDS ORDERED: NOREPINEPHRINE BITARTRATE 1 MG/1 ML ML IV ONE ×2 (16:11→23:38)
[2018-11-02 16:12] LABS: BASOPHILS % (AUTO) 0.2 % (0.0-5.0); EOSINOPHILS % (AUTO) 0.4 % (0.0-8.0); HEMATOCRIT 22.7 % (36-48); LYMPHOCYTES % (AUTO) 13.4 % (21.0-51.0); MEAN CORPUSCULAR HEMOGLOBIN 33.7 pg (27.0-33.0); MEAN CORPUSCULAR HGB CONC 34.7 g/dL (32.0-36.0); MEAN CORPUSCULAR VOLUME 97.2 fL (79-99); MONOCYTES % (AUTO) 9.4 % (3.0-13.0); NEUTROPHILS % (AUTO) 76.6 % (40.0-77.0); PLATELET COUNT (AUTO) 293 K/uL (130-400); RED BLOOD CELL COUNT(AUTO) 2.33 MIL/uL (4.00-5.50); RED CELL DISTRIBUTION WIDTH 16.6 % (11.0-15.5); WHITE BLOOD COUNT (AUTO) 8.5 K/uL (4.8-10.8)
[2018-11-02] MEDS ORDERED: ALBUMIN (HUMAN) 25% 100 ML IV ONE (16:50)
[2018-11-02 16:53] LABS: INR 4.06 (0.85-1.15); PROTHROMBIN TIME 41.5 SEC (9.6-11.6)
[2018-11-02 16:54] LABS: ALBUMIN 1.5 g/dL (3.5-5.0); TOTAL PROTEIN, SERUM 4.9 g/dL (6.0-8.3)
[2018-11-02 16:57] LABS: POTASSIUM 2.9 mmol/L (3.5-5.1)
[2018-11-02 16:59] LABS: BILIRUBIN,TOTAL 27.8 mg/dL (0.2-1.0)
[2018-11-02] MEDS ORDERED: CALCIUM GLUCONATE 1 GM/10 ML VIAL IV ONE (17:44)
[2018-11-02] MEDS ORDERED: PROPOFOL 1000 MG/100 ML 100 ML IV ONE (18:15)
[2018-11-02 19:32] LABS: CREATININE 4.3 mg/dL (0.5-1.5)
[2018-11-02 19:38] LABS: BILIRUBIN,DIRECT 23.4 mg/dL (0.0-0.3); BILIRUBIN,TOTAL 28.7 mg/dL (0.2-1.0)
[2018-11-02 20:09] LABS: ABG HCO3 20.1 mmol/L (21.0-28.0); ABG OXYGEN SATURATION 99.8 % (95.0-99.0); ABG PCO2 31 mmHg (32-45)
[2018-11-02] MEDS ORDERED: ZOSYN 3.375GM+NS 50ML 50 ML IV ONE (20:09)
[2018-11-02] MEDS ORDERED: MAGNESIUM 2GM PREMIX 50ML 50 ML IV ONE (20:09)
[2018-11-02] MEDS ORDERED: POTASSIUM CHLORIDE 10MEQ/100ML 100 ML IV ONE (20:09)
[2018-11-02 20:24] LABS: BASOPHILS % (AUTO) 0.3 % (0.0-5.0); EOSINOPHILS % (AUTO) 0.2 % (0.0-8.0); LYMPHOCYTES % (AUTO) 13.3 % (21.0-51.0); MEAN CORPUSCULAR HEMOGLOBIN 32.8 pg (27.0-33.0); MEAN CORPUSCULAR HGB CONC 35.1 g/dL (32.0-36.0); MEAN CORPUSCULAR VOLUME 93.4 fL (79-99); MONOCYTES % (AUTO) 6.8 % (3.0-13.0); NEUTROPHILS % (AUTO) 79.4 % (40.0-77.0); PLATELET COUNT (AUTO) 287 K/uL (130-400); RED BLOOD CELL COUNT(AUTO) 2.68 MIL/uL (4.00-5.50); RED CELL DISTRIBUTION WIDTH 16.9 % (11.0-15.5); WHITE BLOOD COUNT (AUTO) 11.3 K/uL (4.8-10.8)
[2018-11-02] MEDS ORDERED: OCTREOTIDE ACETATE 500 MCG in SODIUM CHLORIDE 0.9% 97.5 ML IV PRN (20:30)
[2018-11-02] MEDS ORDERED: OCTREOTIDE ACETATE 100 MCG/ML AMP IVP SCH (20:30)
[2018-11-02 20:43] LABS: INR 3.03 (0.85-1.15); PROTHROMBIN TIME 31.1 SEC (9.6-11.6)
[2018-11-02] MEDS ORDERED: MIDAZOLAM 100MG-0.9% NS 100ML 100 ML IV PRN (20:45)
[2018-11-02] MEDS ORDERED: VANCOMYCIN PROTOCOL PER PHARMACY IV SCH (20:45)
[2018-11-02] MEDS: SODIUM CHLORIDE 0.9% 1000ML 1,000 ML IV SCH (20:45)
[2018-11-02] MEDS ORDERED: FENTANYL 2500MCG+NS 250ML 250 ML IV PRN (20:45)
[2018-11-02] MEDS: LACTULOSE 20 GM/30 ML UDCUP PO SCH (21:00)
[2018-11-02] MEDS: ZOSYN 3.375GM+NS 50ML 50 ML IV SCH (21:00)
[2018-11-02] MEDS ORDERED: VANCOMYCIN 1.25 GM in SODIUM CHLORIDE 0.9% 250 ML IV SCH (21:00)
[2018-11-02] MEDS ORDERED: COMPOUND IV REFRIGERATED 1 EACH IVSOLN MISC PRN (21:00)
[2018-11-02] MEDS ORDERED: POTASSIUM CHLORIDE 20MEQ/100ML 100 ML IV ONE (21:09)
--- NOTE | 2018-11-02 22:30 | NUR ---
ADMISSION 53 YEAR OLD FEMALE ADMITTED TO ROOM 219, UNRESPONSIVE, SEDATED, NOT FOLLOWING COMMANDS, INTUBATED, ETT 8, LIP 20CM, VENT SETTINGS AC-14-60%-450- PEEP 5. OGT 14 FR PLACED TO L.I.W.S.. SKIN SCLERA JAUNDICED, CALL SMITH WITHIN REACH. ASSESSMENT COMPLETED, SEE FLOW SHEET.
[2018-11-02 22:45] LABS: HEMATOCRIT 19.8 % (36-48)
[2018-11-02] MEDS: NOREPINEPHRINE 4MG/NS 250ML 250 ML IV SCH (23:03)
[2018-11-02 23:25] LABS: BILIRUBIN,URINE Large (NEGATIVE); COLOR,URINE Dark Yellow (YELLOW); GLUCOSE, URINE (UA) Negative (NEGATIVE); KETONES,URINE Negative (NEGATIVE); LEUKOCYTE ESTERASE ,URINE Moderate (NEGATIVE); NITRATE,URINE Positive (NEGATIVE); OCCULT BLOOD,URINE Negative (NEGATIVE); PH,URINE 5.5 (5.0-8.0); PROTEIN,URINE POS 1+ mg/dL (NEGATIVE)
[2018-11-02 23:27] LABS: APPEARANCE,URINE SLIGHTLY CLOUDY (CLEAR)
[2018-11-02] MEDS ORDERED: SODIUM CHLORIDE 0.9% 250 ML IV ONE ×2 (23:29→23:38)
[2018-11-02] MEDS ORDERED: VASOPRESSIN 20 UNITS/ML 1ML VIAL ONE (23:30)
[2018-11-02 23:43] LABS: BACTERIA,URINE Few /HPF (None Seen); RBC,URINE 0-1 /HPF (0-1)
[2018-11-03] VITALS (48 sets, daily range): BP systolic 50–150; BP diastolic 18–79
[2018-11-03] MEDS ORDERED: PROPOFOL 1000 MG/100 ML 100 ML IV ONE (00:25)
[2018-11-03] MEDS: LACTULOSE 20 GM/30 ML UDCUP PO SCH ×4 (00:39→21:08)
[2018-11-03] MEDS ORDERED: VASOPRESSIN 20 UNITS/ML 1ML VIAL ONE (01:25)
[2018-11-03] MEDS: SODIUM CHLORIDE 0.9% 1000ML 1,000 ML IV SCH ×4 (01:44→15:00)
[2018-11-03] MEDS: NOREPINEPHRINE 4MG/NS 250ML 250 ML IV SCH ×2 (01:51→05:27)
[2018-11-03 04:45] LABS: BASOPHILS % (AUTO) 0.5 % (0.0-5.0); EOSINOPHILS % (AUTO) 0.7 % (0.0-8.0); HEMATOCRIT 23.1 % (36-48); LYMPHOCYTES % (AUTO) 12.8 % (21.0-51.0); MEAN CORPUSCULAR HEMOGLOBIN 32.8 pg (27.0-33.0); MEAN CORPUSCULAR HGB CONC 33.7 g/dL (32.0-36.0); MEAN CORPUSCULAR VOLUME 97.4 fL (79-99); MONOCYTES % (AUTO) 9.1 % (3.0-13.0); NEUTROPHILS % (AUTO) 76.9 % (40.0-77.0); NUCLEATED RED BLOOD CELLS 0.3 % (0.0-0.19); PLATELET COUNT (AUTO) 196 K/uL (130-400); RED BLOOD CELL COUNT(AUTO) 2.37 MIL/uL (4.00-5.50); RED CELL DISTRIBUTION WIDTH 16.9 % (11.0-15.5); WHITE BLOOD COUNT (AUTO) 21.9 K/uL (4.8-10.8)
[2018-11-03] MEDS ORDERED: OCTREOTIDE ACETATE 200 MCG/ML 5 ML VIAL ONE (04:57)
[2018-11-03 04:58] LABS: CREATININE 4.9 mg/dL (0.5-1.5); POTASSIUM 4.7 mmol/L (3.5-5.1)
[2018-11-03 05:00] LABS: INR 2.76 (0.85-1.15); PARTIAL THROMBOPLASTIN TIME 72.7 SEC (26.3-35.5); PROTHROMBIN TIME 28.4 SEC (9.6-11.6)
[2018-11-03] MEDS ORDERED: SODIUM CHLORIDE 0.9% 100 ML IV ONE (05:04)
[2018-11-03 05:20] LABS: ABG BASE EXCESS -25.4 mmol/L (-2.0-3.0); ABG HCO3 5.5 mmol/L (21.0-28.0); ABG OXYGEN SATURATION 97.9 % (95.0-99.0); ABG PCO2 25 mmHg (32-45)
[2018-11-03] MEDS: PANTOPRAZOLE SODIUM 80 MG in SODIUM CHLORIDE 0.9% 100 ML IV SCH ×2 (05:27→17:19)
[2018-11-03] MEDS ORDERED: PHYTONADIONE 10 MG/1 ML AMP SQ SCH ×2 (05:45)
[2018-11-03] MEDS ORDERED: SODIUM BICARB 50MEQ 50ML VIAL IV SCH ×2 (05:45→11:43)
[2018-11-03] MEDS ORDERED: SODIUM BICARB 8.4% 50ML SYRING 150 MEQ in SODIUM CHLORIDE 0.9% 1000ML 1,000 ML IV SCH (05:45)
[2018-11-03] MEDS ORDERED: SODIUM BICARB 50MEQ 50ML VIAL ONE (05:47)
[2018-11-03] MEDS ORDERED: SODIUM CHLORIDE 0.9% 250 ML IV ONE ×4 (06:12→19:55)
--- NOTE | 2018-11-03 07:05 | NUR ---
REPORT REPORT GIVEN TO LISBETH EGAN
[2018-11-03] MEDS ORDERED: NOREPINEPHRINE 4MG/NS 250ML 250 ML IV SCH (07:15)
[2018-11-03 07:37] LABS: ABG BASE EXCESS -22.9 mmol/L (-2.0-3.0); ABG HCO3 6.6 mmol/L (21.0-28.0); ABG OXYGEN SATURATION 98.7 % (95.0-99.0); ABG PCO2 25 mmHg (32-45)
--- NOTE | 2018-11-03 07:50 | NUR ---
T/C TO DAUGHTER, RALPH DEVLIN TO ADVISE OF CRITICAL, GUARDED CONDITION - STATES SHE IS ON HER WAY.
--- NOTE | 2018-11-03 08:00 | NUR ---
ASSESS: CRITICAL, UNSTABLE PT WITH INABILITY TO ASCERTAIN B/P; HAVE CHECKED ALL EXTREMITIES - CAROTID PULSE STRONG AND CORRELATES TO ECG. DR. WONG IN UNIT ADVISED OF CURRENT STATUS.
--- NOTE | 2018-11-03 08:35 | NUR ---
FAMILY: ONE DUAGHTER AND SON AT [facility] - DR. WONG ADVISES THEM OF THE CURRENT STATUS AND POOR PROGNOSIS.
[2018-11-03] MEDS: NOREPINEPHRINE BITARTRATE 8 MG/NS 250ML IV SCH ×4 (08:45→14:53)
[2018-11-03] MEDS: ATROPINE SULFATE 0.1 MG/ML 10 ML SYG IVP SCH (08:50)
--- NOTE | 2018-11-03 08:50 | NUR ---
BRADYCARDIA 30'S: ATROPINE 0.[address] WONG. DAUGHTER AT [facility] IS MADE AWARE OF SITUATION.
--- NOTE | 2018-11-03 08:58 | NUR ---
BRADYCARDIA 30'S: ATROPINE 0.5MG IVP
[2018-11-03] MEDS: ZOSYN 3.375GM+NS 50ML 50 ML IV SCH ×2 (09:00→20:28)
--- NOTE | 2018-11-03 09:30 | NUR ---
CRASH CART AT D - DEFIB PADS CONNECTED AND MONITOR ON - BACKBOARD UNDER PATIENT.
[2018-11-03] MEDS ORDERED: DOPAMINE 800MG/D5 250ML 250 ML IV ONE (09:41)
[2018-11-03] MEDS ORDERED: DOPAMINE 800MG/D5 250ML 250 ML IV PRN (09:45)
--- NOTE | 2018-11-03 10:13 | NUR ---
FAMILY: SPOUSE AT [facility] - CHARGE NURSE SPOKE TO HIM IN [place]VI[place] REGARDING CURRENT STATUS AND OPTION OF DNR AND FULL CODE - HE WANTS TO SPEAK TO HIS CHILDREN AT THE SAME TIME.
--- NOTE | 2018-11-03 10:30 | NUR ---
V/S: CAROTID PULSE 40 WHICH CORRELATES WITH MONITOR - STILL UNABLE TO OBTAIN B/P AND PULSE OX UNRELIABLE IT VARIES FROM 50'S TO 80'S.
--- NOTE | 2018-11-03 11:21 | NUR ---
HAYDEN PLAN VISITED WITH PATIENT. PATIENT UNSTABLE. MICHEAL WILL CONTINUE TO FOLLOW. Addendum: 11/03/18 at 1124 by LIAM STOKES RN CM Amended: Links added.
--- NOTE | 2018-11-03 11:21 | NUR ---
BRADYCARDIA TO TEENS - NO PULSE - CODE - SEE CODE FORM
[2018-11-03] MEDS ORDERED: ALBUMIN (HUMAN) 5% 250 ML IV SCH (11:43)
[2018-11-03] MEDS ORDERED: PHARMACY COMMUNICATION MISC STA (11:43)
[2018-11-03] MEDS ORDERED: ALBUMIN (HUMAN) 5% 250 ML IV ONE (11:43)
[2018-11-03 11:44] LABS: ABG BASE EXCESS -23.3 mmol/L (-2.0-3.0); ABG HCO3 6.6 mmol/L (21.0-28.0); ABG OXYGEN SATURATION 98.8 % (95.0-99.0); ABG PCO2 34 mmHg (32-45)
[2018-11-03] MEDS: INSULIN HUMULIN R 100 UNIT/ML 3ML SQ SCH ×7 (11:45→23:45)
--- NOTE | 2018-11-03 11:50 | NUR ---
STATUS POST 9 MINUTE CODE EPI GTT STARTED PER ORDER.
[2018-11-03 11:53] LABS: CREATININE 5.3 mg/dL (0.5-1.5); POTASSIUM 5.7 mmol/L (3.5-5.1)
[2018-11-03 11:56] LABS: MEAN CORPUSCULAR HEMOGLOBIN 32.5 pg (27.0-33.0); MEAN CORPUSCULAR HGB CONC 31.6 g/dL (32.0-36.0); MEAN CORPUSCULAR VOLUME 102.8 fL (79-99); NUCLEATED RED BLOOD CELLS 1.2 % (0.0-0.19); PLATELET COUNT (AUTO) 117 K/uL (130-400); RED BLOOD CELL COUNT(AUTO) 1.12 MIL/uL (4.00-5.50); RED CELL DISTRIBUTION WIDTH 19.3 % (11.0-15.5)
[2018-11-03] MEDS ORDERED: DEXTROSE 5% IVP SCH (12:00)
[2018-11-03] MEDS: EPINEPHRINE 8 MG in SODIUM CHLORIDE 0.9% 250 ML IV PRN (12:00)
[2018-11-03] MEDS ORDERED: WATER IVP SCH (12:00)
[2018-11-03] MEDS ORDERED: SYRING IVP SCH (12:00)
[2018-11-03] MEDS ORDERED: SODIUM BICARB 8.4% IVP SCH (12:00)
[2018-11-03 12:03] LABS: BILIRUBIN,TOTAL 13.1 mg/dL (0.2-1.0); MAGNESIUM 2.8 mg/dL (1.80-2.40); PHOSPHORUS 11.5 mg/dL (2.5-4.9); TOTAL PROTEIN, SERUM 2.6 g/dL (6.0-8.3)
[2018-11-03] MEDS ORDERED: SODIUM CHLORIDE 0.9% 500ML 500 ML IV ONE ×4 (12:08→21:06)
--- NOTE | 2018-11-03 12:15 | NUR ---
SPOUSE: DR. JUAREZ SPOKE AT LENGTH REGARDING PT CONDITION AND POOR PROGNOSIS - PT REMAINS FULL CODE.
[2018-11-03 12:19] LABS: HEMATOCRIT 11.5 % (36-48)
[2018-11-03 12:26] LABS: PARTIAL THROMBOPLASTIN TIME > 120.0 SEC (26.3-35.5); PROTHROMBIN TIME 38.1 SEC (9.6-11.6)
[2018-11-03 12:27] LABS: INR 3.72 (0.85-1.15)
[2018-11-03] MEDS ORDERED: CALCIUM GLUCONATE 1 GM/10 ML VIAL IV STA (12:36)
[2018-11-03] MEDS ORDERED: CALCIUM GLUCONATE 2 GM in SODIUM CHLORIDE 0.9% 100 ML IV SCH ×2 (12:45→21:30)
[2018-11-03] MEDS ORDERED: DEXTROSE 50%-WATER 50 ML DISP.SYRIN IV ONE (12:58)
[2018-11-03] MEDS ORDERED: SODIUM BICARB 8.4% 50ML SYRING 200 MEQ in DEXTROSE 10%-WATER 1,000 ML IV SCH (13:00)
[2018-11-03] MEDS: ARTIFICAL TEARS SOL 15 ML OP SCH ×2 (13:00→20:29)
[2018-11-03] MEDS: SODIUM BICARB 50MEQ 50ML VIAL IVPB SCH (13:37)
--- NOTE | 2018-11-03 13:37 | NUR ---
100 MEQ OF NA BICARB PER ORDER.
[2018-11-03] MEDS: SODIUM BICARB 8.4% 50ML SYRING 200 MEQ in DEXTROSE 10%-WATER 1,000 ML IVP SCH ×2 (13:38→23:11)
[2018-11-03] MEDS: VASOPRESSIN 20 UNITS in SODIUM CHLORIDE 0.9% 50 ML IV PRN ×2 (14:51→21:37)
--- NOTE | 2018-11-03 16:00 | NUR ---
ASSESS: RACHAEL RHONCHI SECONDARY TO ANURIA AND LARGE VOL INTAKE.
--- NOTE | 2018-11-03 16:16 | NUR ---
Nutrition Intervention: Nutrition notification for NPO, GI bleed, jaundice. Pt had a code blue this morning. At time of RD visit pt's RN stated no plans for TF at the moment as code had recently happened. RD to f/u tomorrow. Addendum: 11/03/18 at [address] Amended: Links added.
[2018-11-03 17:35] LABS: ABG BASE EXCESS -29.5 mmol/L (-2.0-3.0); ABG HCO3 4.6 mmol/L (21.0-28.0); ABG OXYGEN SATURATION 60.9 % (95.0-99.0); ABG PCO2 29 mmHg (32-45)
[2018-11-03] MEDS ORDERED: SODIUM BICARB 50MEQ 50ML VIAL IV STA (17:40)
[2018-11-03 17:41] LABS: INR 2.41 (0.85-1.15); PROTHROMBIN TIME 24.9 SEC (9.6-11.6)
--- NOTE | 2018-11-03 17:45 | NUR ---
CURRENT CONDITION: FATHER HAS BEEN HERE ALL DAY AND NOW SON IS RELIEVING HIM - UPDATED ON RENAL FAILURE AND DIC REQUIRING BLOOD PRODUCTS AND POOR PROGNOSIS MD EXPLAINED TO SPOUSE. SON COMMUNICATES UNDERSTANDING.
[2018-11-03 17:53] LABS: FIBRINOGEN 68 mg/dL (180-350); PARTIAL THROMBOPLASTIN TIME > 120.0 SEC (26.3-35.5)
[2018-11-03 17:55] LABS: PLATELET COUNT (AUTO) 197 K/uL (130-400)
--- NOTE | 2018-11-03 17:55 | NUR ---
200MEQ NA BICARB IVP PER ORDER. Addendum: 11/03/18 at 2010 by LISBETH GONZALES RN RN TIME CORRECTION = [id number]
[2018-11-03 17:56] LABS: HEMATOCRIT 20.7 % (36-48)
[2018-11-03 18:15] LABS: D-DIMER > 10000 ng/mL (0-500)
[2018-11-03 18:22] LABS: CREATININE 5.1 mg/dL (0.5-1.5); POTASSIUM 5.8 mmol/L (3.5-5.1)
[2018-11-03] MEDS ORDERED: SODIUM CHLORIDE 0.9% 100 ML IV SCH (18:30)
--- NOTE | 2018-11-03 19:00 | NUR ---
PT IS 1:1 PT IS 1;[address] JUAREZ'S ORDERS
--- NOTE | 2018-11-03 19:15 | NUR ---
BLOOD TRANSFUSION BLOOD TRANSFUSION PER ORDERS, SEE TRANSFUSION RECORD.
[2018-11-03] MEDS ORDERED: NOREPINEPHRINE BITARTRATE 8 MG/NS 250ML IV SCH ×2 (19:21)
[2018-11-03] MEDS ORDERED: METF-444 PO (19:50)
--- NOTE | 2018-11-03 20:00 | NUR ---
ASSESSMENT PT RESTING BED. AT BEDSIDE. PT INTUBATED 8 FR 20 CM AT THE LIP, AC-100%-18-500 PEEP 12. IV FLUIDS INFUSING WITHOUT DIFFICULTY. 14 FR OGT TO L.I.W.S.. 16FR BEVERLY CATHETER TO BEDSIDE, PT REMAINS ANURIC. BLOOD TRANSFUSIONS GIVEN PER ORDERS, SEE TRANSFUSION RECORDS. PERIPHERAL PULSES NOTED BY DOPPLER WITH A STRONG CAROTID PULSE. UNABLE TO OBTAIN A BP, JOSE HUGGER IN PLACE. CALL SMITH WITHIN REACH, ASSESSMENT COMPLETED, SEE FLOW SHEET.
[2018-11-03] MEDS ORDERED: CALCIUM GLUCONATE 1 GM/10 ML VIAL IV SCH (21:00)
[2018-11-03] MEDS ORDERED: ALBUTEROL SULFATE 0.083% 2.5 MG/3 ML INH IH ONE (21:12)
[2018-11-03] MEDS: ALBUTEROL SULFATE 0.083% 2.5 MG/3 ML INH IH SCH ×2 (21:23→23:17)
--- NOTE | 2018-11-03 23:00 | NUR ---
ASSESSMENT PT IN BED. REMAINS AT BEDSIDE. PT INTUBATED 8 FR 20 CM AT THE LIP, AC-100%-18-500 PEEP 12. IV FLUIDS INFUSING WITHOUT DIFFICULTY. 14 FR OGT TO L.I.W.S.. 16FR BEVERLY CATHETER TO BEDSIDE DRAINAGE, PT REMAINS ANURIC. BLOOD TRANSFUSIONS CONTINUED. SEE TRANSFUSION RECORDS. PERIPHERAL PULSES NOTED BY DOPPLER WITH A STRONG CAROTID PULSE. UNABLE TO OBTAIN A BP, JOSE HUGGER IN PLACE. CALL SMITH WITHIN REACH, ASSESSMENT COMPLETED, SEE FLOW SHEET.
[2018-11-04] MEDS: EPINEPHRINE 8 MG in SODIUM CHLORIDE 0.9% 250 ML IV PRN (00:46)
[2018-11-04 01:26] LABS: BASOPHILS % (AUTO) 0.7 % (0.0-5.0); HEMATOCRIT 22.9 % (36-48); LYMPHOCYTES % (AUTO) 24.8 % (21.0-51.0); MEAN CORPUSCULAR HGB CONC 32.2 g/dL (32.0-36.0); MEAN CORPUSCULAR VOLUME 99.4 fL (79-99); MONOCYTES % (AUTO) 6.8 % (3.0-13.0); NEUTROPHILS % (AUTO) 66.7 % (40.0-77.0); NUCLEATED RED BLOOD CELLS 2.4 % (0.0-0.19); PLATELET COUNT (AUTO) 91 K/uL (130-400); RED BLOOD CELL COUNT(AUTO) 2.31 MIL/uL (4.00-5.50); RED CELL DISTRIBUTION WIDTH 16.2 % (11.0-15.5)
[2018-11-04 01:33] LABS: POTASSIUM 7.3 mmol/L (3.5-5.1)
[2018-11-04] MEDS: ALBUTEROL SULFATE 0.083% 2.5 MG/3 ML INH IH SCH ×2 (01:41→03:02)
[2018-11-04 01:44] LABS: INR 2.73 (0.85-1.15); PROTHROMBIN TIME 28.1 SEC (9.6-11.6)
[2018-11-04] MEDS: INSULIN HUMULIN R 100 UNIT/ML 3ML SQ SCH (01:45)
[2018-11-04 01:50] LABS: PARTIAL THROMBOPLASTIN TIME > 120.0 SEC (26.3-35.5)
--- NOTE | 2018-11-04 02:30 | NUR ---
MEDHAT AWS CONSULTANT MADE AWARE OF PLT 91, K-7.3, PTT-GREATER THEN 120, FIBRINOGEN-49, SEE ORDERS.
--- NOTE | 2018-11-04 02:48 | NUR ---
BRADYCARDIAC BRADYCARDIAC, PT ASSESSED AND NOTED TO BE IN PEA. CODE BLUE CALLED, SEE CODE SHEET.
[2018-11-04] MEDS ORDERED: CALCIUM GLUCONATE 1 GM/10 ML VIAL IV ONE (02:56)
[2018-11-04] MEDS ORDERED: SODIUM POLYSTYRENE SULFONATE 15 GM/60 ML ML ONE (02:56)
[2018-11-04 02:58] VITALS: BP 89/40
[2018-11-04] MEDS ORDERED: LORAZEPAM 2 MG/ML 1 ML VIAL ONE (03:05)
[2018-11-04] MEDS ORDERED: DEXTROSE 50%-WATER 50 ML DISP.SYRIN IV ONE ×2 (03:08→04:12)
[2018-11-04] MEDS: LACTULOSE 20 GM/30 ML UDCUP PO SCH (03:26)
[2018-11-04] MEDS: SODIUM BICARB 50MEQ 50ML VIAL IVPB SCH (03:27)
[2018-11-04] MEDS: ATROPINE SULFATE 0.1 MG/ML 10 ML SYG IVP SCH (03:30)
--- NOTE | 2018-11-04 03:30 | NUR ---
ASSESSMENT PT IN BED. REMAINS AT BEDSIDE. PT INTUBATED 8 FR 20 CM AT THE LIP, AC-100%-18-500 PEEP 12. IV FLUIDS INFUSING WITHOUT DIFFICULTY. 14 FR OGT TO L.I.W.S.. 16FR BEVERLY CATHETER TO BEDSIDE DRAINAGE, PT REMAINS ANURIC. PERIPHERAL PULSES WEAK BY NOTED AND WEAK DOPPLER CAROTID PULSE. UNABLE TO OBTAIN A BP, JOSE HUGGER IN PLACE. CALL SMITH WITHIN REACH, ASSESSMENT COMPLETED, SEE FLOW SHEET.
[2018-11-04 03:31] LABS: ABG BASE EXCESS -28.9 mmol/L (-2.0-3.0); ABG HCO3 3.9 mmol/L (21.0-28.0); ABG OXYGEN SATURATION 83.2 % (95.0-99.0); ABG PCO2 31 mmHg (32-45)
[2018-11-04 03:56] LABS: MEAN CORPUSCULAR VOLUME 103.2 fL (79-99); NUCLEATED RED BLOOD CELLS 2.5 % (0.0-0.19); PLATELET COUNT (AUTO) 75 K/uL (130-400); RED BLOOD CELL COUNT(AUTO) 1.67 MIL/uL (4.00-5.50); RED CELL DISTRIBUTION WIDTH 16.6 % (11.0-15.5); WHITE BLOOD COUNT (AUTO) 14.9 K/uL (4.8-10.8)
--- NOTE | 2018-11-04 04:05 | NUR ---
LOW HEART RATE ASSESSMENT STARTED PT NEEDED TO BE IN ASYSTOLE, CODE BLUE CALLED, SEE CODE BLUE SHEET.
[2018-11-04 04:08] LABS: HEMATOCRIT 17.2 % (36-48)
[2018-11-04 04:12] LABS: ALBUMIN 0.9 g/dL (3.5-5.0); BILIRUBIN,TOTAL 8.1 mg/dL (0.2-1.0); CHLORIDE 103 mmol/L (101-111); CREATININE 5.1 mg/dL (0.5-1.5); GLOMERULAR FILTR. RATE CALC 9 mL/min (>60); GLUCOSE,RANDOM 370 mg/dL (70-105); SODIUM SERUM 153 mmol/L (136-145); TOTAL PROTEIN, SERUM 2.7 g/dL (6.0-8.3); UREA NITROGEN, BLOOD 55 mg/dL (7-18)
[2018-11-04 04:21] LABS: PROTHROMBIN TIME 46.5 SEC (9.6-11.6)
[2018-11-04 04:26] LABS: PARTIAL THROMBOPLASTIN TIME > 120.0 SEC (26.3-35.5)
[2018-11-04 04:27] LABS: INR 4.56 (0.85-1.15)
--- NOTE | 2018-11-04 04:29 | NUR ---
CANYD ALSTON NP MADE AWARE OF CODE FORREST CALLED AND PT .
--- NOTE | 2018-11-04 04:30 | NUR ---
JERRY EDWARDS MADE AWARE OF PT EXPIRATION AT 0424. SEE TOSA SHEET.
--- NOTE | 2018-11-04 04:32 | NUR ---
MEDHAT FIERRO NP MADE AWARE OF CASS CLAYTON CALLED AND PT .
[2018-11-04 05:38] LABS: CARBON DIOXIDE 9 mmol/L (21-32); POTASSIUM 8.8 mmol/L (3.5-5.1)
[2018-11-04 05:39] LABS: ALANINE AMINOTRANSFERASE 3557 U/L (12-78); AMMONIA 994 umol/L (11-32)
--- NOTE | 2018-11-04 07:30 | NUR ---
DR. AUSTIN MESSAGE LEFT, DR AUSTIN MADE AWARE OF CODE BLUE CALLED AND PT .
== END 2018-11-04 04:24 | disposition expired | DRG 871 ==
LOC: EDH 15:48 → EDHIP 15:49 → 2CH 22:17
PROVIDERS: ADMIT Internal Medicine; ATTEND Internal Medicine
PROC: 5A1945Z Respiratory Ventilation, 24-96 Consecutive Hours (ICD-10-PCS; principal; 2018-11-02)
PROC: 30233K1 Transfusion of Nonautologous Frozen Plasma into Peripheral Vein, Percutaneous Approach (ICD-10-PCS; 2018-11-02)
PROC: 30233N1 Transfusion of Nonautologous Red Blood Cells into Peripheral Vein, Percutaneous Approach (ICD-10-PCS; 2018-11-02)
PROC: 0BH17EZ Insertion of Endotracheal Airway into Trachea, Via Natural or Artificial Opening (ICD-10-PCS; 2018-11-02)
PROC: 30233R1 Transfusion of Nonautologous Platelets into Peripheral Vein, Percutaneous Approach (ICD-10-PCS; 2018-11-03)
PROC: 5A12012 Performance of Cardiac Output, Single, Manual (ICD-10-PCS; 2018-11-03)
DX: A41.9 Sepsis, unspecified organism (principal); J96.00 Acute respiratory failure, unspecified whether with hypoxia or hypercapnia; G93.41 Metabolic encephalopathy; D65 Disseminated intravascular coagulation [defibrination syndrome]; K72.00 Acute and subacute hepatic failure without coma; R65.21 Severe sepsis with septic shock; D62 Acute posthemorrhagic anemia; N17.9 Acute kidney failure, unspecified; D68.4 Acquired coagulation factor deficiency; C56.9 Malignant neoplasm of unspecified ovary; C78.7 Secondary malignant neoplasm of liver and intrahepatic bile duct; G93.1 Anoxic brain damage, not elsewhere classified; K92.2 Gastrointestinal hemorrhage, unspecified; I46.9 Cardiac arrest, cause unspecified; R57.8 Other shock; E11.649 Type 2 diabetes mellitus with hypoglycemia without coma; E87.5 Hyperkalemia; E87.6 Hypokalemia; Z90.49 Acquired absence of other specified parts of digestive tract
CPT/HCPCS: 31500; 36415; 36430; 36600; 71045; 76700; 80048; 80053; 81001; 82140; 82247; 82248; 82435; 82550; 82803; 82947; 82948; 82977; 83605; 83735; 84100; 84132; 84295; 84484; 85014; 85018; 85025; 85027; 85049; 85378; 85384; 85610; 85730; 86850; 86900; 86901; 86922; 86927; 87040; 87088; 92950; 93005; 94002; 94003; 94640; 94664; 99291; C9113; G0378; J0171; J0461; J0610; J1265; J1815; J2060; J2354; J2543; J2704; J3370; J3430; J3475; J3480; J3490; J7030; J7040; J7070; P9012; P9016; P9017; P9034; P9045; P9047